=== PATIENT | female | born 1970 | race Caucasian/White ===

== ENCOUNTER 2019-12-21 13:27 | Outpatient (REF) | payer OTHER, SELFPAY ==
[2019-12-27 18:17] LABS: HPV mRNA E6/E7 rflx Not Detected (Not Detected)
== END 2019-12-21 13:28 | disposition home or self-care (01) ==
LOC: HO.LAB 13:27
PROVIDERS: PCP Pediatrics; Visit Provider Obstetrics & Gynecology
DX: Z01.419 Encounter for gynecological examination (general) (routine) without abnormal findings (principal); N87.0 Mild cervical dysplasia; T83.32XA Displacement of intrauterine contraceptive device, initial encounter
CPT/HCPCS: 87624; 87625; 88141; 88142

== ENCOUNTER 2019-12-23 07:24 | Outpatient (REF) | payer OTHER, SELFPAY ==
--- NOTE | 2019-12-23 | MM_ITS ---
EXAMINATION: MM SCREENING DIGITAL BREAST TOMOSYNTHESIS, BILATERAL CLINICAL INFORMATION: Screening. Asymptomatic. Prior reduction mammoplasty 2012. The lifetime risk of breast cancer based on the Tyrer-Cuzick Model is 8%. COMPARISON: Mammography: 12/17/2018, 12/13/2017 TECHNIQUE: Digital breast tomosynthesis is performed in both the craniocaudal and mediolateral oblique views along with computer-aided detection (CAD). Synthesized 2D images are generated from the tomosynthesis. FINDINGS: The breasts are almost entirely fatty (ACR BI-RADS breast composition Category a). There are background stromal densities, stable from prior studies. Scattered regional calcifications anterior left breast are also similar to prior studies. Neither breast shows interval mass or architectural abnormality or abnormal calcifications. No significant changes from prior studies. MM/MM tomosynthesis screening BI IMPRESSION: No mammographic evidence of malignancy. ASSESSMENT: BI-RADS 2: Benign RECOMMENDATION: Routine annual mammography screening. This patient's information was entered into a reminder system with a target due date for their next mammogram.
== END 2019-12-23 07:25 | disposition home or self-care (01) ==
LOC: HO.MAMMO 07:24
PROVIDERS: PCP Pediatrics; Visit Provider Pediatrics
DX: Z12.31 Encounter for screening mammogram for malignant neoplasm of breast (principal)
CPT/HCPCS: 77063; 77067

== ENCOUNTER 2019-12-27 13:20 | Outpatient (REF) | payer OTHER, SELFPAY ==
--- NOTE | 2019-12-27 13:24 | US_ITS ---
EXAMINATION: ULTRASOUND PELVIS COMPLETE CLINICAL INFORMATION: Displaced IUD. COMPARISON: None TECHNIQUE: Transabdominal and transvaginal ultrasound the pelvis is performed. FINDINGS: The uterus is retroverted, retroflexed measuring 8.2 cm in length, 4.3 cm in AP and 5.0 cm in transverse dimension. Endometrial thickness of 0.4 cm. There are small nabothian cysts seen in the cervix. Right ovary measures 2.6 x 1.2 x 1.2 cm and volume 2.0 cm. Left ovary measures 2.5 x 1.5 x 1.7 cm and volume 3.3 mL. There is a dominant follicle measuring 1.4 x 1.2 x 1.2 cm. No solid lesions seen. There is small amount of free fluid in the pelvis. US/US pelvic complete IMPRESSION: Unremarkable retroverted uterus. IUD is in satisfactory position within the endometrial canal. Dominant follicle left ovary. The right ovary is unremarkable. There is no free fluid in the cul-de-sac.
--- NOTE | 2019-12-27 13:24 | US_ITS ---
EXAMINATION: ULTRASOUND PELVIS COMPLETE CLINICAL INFORMATION: Displaced IUD. COMPARISON: None TECHNIQUE: Transabdominal and transvaginal ultrasound the pelvis is performed. FINDINGS: The uterus is retroverted, retroflexed measuring 8.2 cm in length, 4.3 cm in AP and 5.0 cm in transverse dimension. Endometrial thickness of 0.4 cm. There are small nabothian cysts seen in the cervix. Right ovary measures 2.6 x 1.2 x 1.2 cm and volume 2.0 cm. Left ovary measures 2.5 x 1.5 x 1.7 cm and volume 3.3 mL. There is a dominant follicle measuring 1.4 x 1.2 x 1.2 cm. No solid lesions seen. There is small amount of free fluid in the pelvis. US/US transvaginal IMPRESSION: Unremarkable retroverted uterus. IUD is in satisfactory position within the endometrial canal. Dominant follicle left ovary. The right ovary is unremarkable. There is no free fluid in the cul-de-sac.
== END 2019-12-27 13:21 | disposition home or self-care (01) ==
LOC: HO.US 13:20
PROVIDERS: Visit Provider Obstetrics & Gynecology
DX: T83.32XA Displacement of intrauterine contraceptive device, initial encounter (principal)
CPT/HCPCS: 76830; 76856

== ENCOUNTER → 2020-01-10 15:54 | Outpatient (BNVA) | payer OTHER, SELFPAY | PROVIDERS: Visit Provider Obstetrics & Gynecology | DX: Z76.89 Persons encountering health services in other specified circumstances (principal) ==

== ENCOUNTER → 2020-02-28 13:39 | Outpatient (BNVA) | payer OTHER, SELFPAY | PROVIDERS: PCP Pediatrics; Visit Provider Obstetrics & Gynecology | DX: Z76.89 Persons encountering health services in other specified circumstances (principal) ==

== ENCOUNTER 2020-12-28 08:42 | Outpatient (REF) | payer OTHER, SELFPAY ==
--- NOTE | ~2020-12-28 | MM_ITS ---
EXAMINATION: MM SCREENING DIGITAL BREAST TOMOSYNTHESIS, BILATERAL CLINICAL INFORMATION: Screening. Asymptomatic. The lifetime risk of breast cancer based on the Tyrer-Cuzick Model is 8%. COMPARISON: Mammography: 12/23/2019, 12/17/2018, 12/13/2017 TECHNIQUE: Digital breast tomosynthesis is performed in both the craniocaudal and mediolateral oblique views along with computer-aided detection (CAD). Synthesized 2D images are generated from the tomosynthesis. FINDINGS: There are scattered areas of fibroglandular density (ACR BI-RADS breast composition Category b). There are no significant masses, abnormal calcifications, or other abnormalities. MM/MM tomosynthesis screening BI IMPRESSION: No mammographic evidence of malignancy. ASSESSMENT: BI-RADS 1: Negative RECOMMENDATION: Routine annual mammography screening. This patient's information was entered into a reminder system with a target due date for their next mammogram.
== END 2020-12-28 08:43 | disposition home or self-care (01) ==
LOC: HO.MAMMO 08:42
PROVIDERS: Visit Provider Pediatrics
DX: Z12.31 Encounter for screening mammogram for malignant neoplasm of breast (principal)
CPT/HCPCS: 77063; 77067

== ENCOUNTER 2021-04-15 14:52 | Outpatient (REF) | payer OTHER, SELFPAY ==
[2021-04-18 04:27] LABS: HPV mRNA E6/E7 rflx Not Detected (Not Detected)
== END 2021-04-15 14:53 | disposition home or self-care (01) ==
LOC: HO.LAB 14:52
PROVIDERS: Visit Provider Obstetrics & Gynecology
DX: Z01.419 Encounter for gynecological examination (general) (routine) without abnormal findings (principal); Z11.51 Encounter for screening for human papillomavirus (HPV); N87.0 Mild cervical dysplasia
CPT/HCPCS: 87624; 88142

== ENCOUNTER 2022-01-03 08:57 | Outpatient (REF) | payer OTHER, SELFPAY ==
--- NOTE | ~2022-01-03 | MM_ITS ---
EXAMINATION: MM SCREENING DIGITAL BREAST TOMOSYNTHESIS, BILATERAL CLINICAL INFORMATION: Screening. Asymptomatic. History reduction mammoplasty, 2013. COMPARISON: Mammography: 12/28/2020, 12/23/2019, 12/17/2018 TECHNIQUE: Digital breast tomosynthesis is performed in both the craniocaudal and mediolateral oblique views along with computer-aided detection (CAD). Synthesized 2D images are generated from the tomosynthesis. FINDINGS: There are scattered areas of fibroglandular density (ACR BI-RADS breast composition Category b). There are no significant masses, abnormal calcifications, or other abnormalities. Parenchymal pattern is similar to prior studies. There is no developing density or architectural abnormality. The axilla and skin contours are unremarkable. No significant changes. MM/MM tomosynthesis screening BI IMPRESSION: No mammographic evidence of malignancy. ASSESSMENT: BI-RADS 1: Negative RECOMMENDATION: Routine annual mammography screening. This patient's information was entered into a reminder system with a target due date for their next mammogram.
== END 2022-01-03 08:58 | disposition home or self-care (01) ==
LOC: HO.MAMMO 08:57
PROVIDERS: PCP Internal Medicine; Visit Provider Internal Medicine
DX: Z12.31 Encounter for screening mammogram for malignant neoplasm of breast (principal)
CPT/HCPCS: 77063; 77067

== ENCOUNTER 2022-08-26 07:55 | Outpatient (REF) | payer OTHER, SELFPAY ==
[2022-08-29 05:34] LABS: HPV mRNA E6/E7 rflx Not Detected (Not Detected)
== END 2022-08-26 07:56 | disposition home or self-care (01) ==
LOC: HO.LNP 07:55
PROVIDERS: PCP Internal Medicine; Visit Provider Obstetrics & Gynecology
DX: Z01.419 Encounter for gynecological examination (general) (routine) without abnormal findings (principal); N87.0 Mild cervical dysplasia
CPT/HCPCS: 87624; 88142

== ENCOUNTER 2023-01-09 08:07 | Outpatient (REF) | payer OTHER, SELFPAY | END 2023-01-09 08:08 | disposition home or self-care (01) | LOC: HO.MAMMO 08:07 | PROVIDERS: Visit Provider Internal Medicine | DX: Z12.31 Encounter for screening mammogram for malignant neoplasm of breast (principal) | CPT/HCPCS: 77063; 77067 ==

== ENCOUNTER → 2023-01-09 08:15 | Outpatient (BNV) | payer OTHER, SELFPAY | PROVIDERS: Visit Provider Radiology Diagnostic Radiology | DX: Z12.31 Encounter for screening mammogram for malignant neoplasm of breast (principal) | CPT/HCPCS: 77063; 77067 ==

== ENCOUNTER 2023-08-25 08:37 | Outpatient (AMB) | payer OTHER, SELFPAY ==
[2023-08-25 08:40] VITALS: BP 108/68; BMI 33.0
--- NOTE | 2023-08-25 08:40 | A.OFFVIS_ITS ---
Vital Signs 08/25/23 08:40 Height 5 ft 7 in Weight 211 lb BMI 33.0 BP 108/68 Intake Visit Reasons: annual [employer] Java Developer Required: No Information Interpreted: non-clinical & clinical Top Lift Compressor: Top Lift Compressor Present (Niki PERAZA) Accompanied by: Self / Same As Patient Allergies No Known Allergies Allergy (Verified 08/25/23 08:45) Is last menstrual period known: No (mirena) HPI Comments Details: Presenting for annual exam. No complaints. Last Pap/HPV was negative in 08/2022 Last Mammogram was BI-RADS 1 in 01/14 Lab screening Colonoscopy was done at [facility] according to the patient in 2022, the recommendation was to repeat in 3 years, no records available [facility] Medical History SANTI I (cervical intraepithelial neoplasia I) Surgical History H/O LEEP H/O bilateral breast reduction surgery Family History Mother Cervical cancer Social History Household Members: Children Housing: Apartment Alcohol intake: never Patient Tobacco Use Status: Never used Tobacco Current occupational status: employed 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 Sexual orientation: Straight/Heterosexual Gender identity: Female Female Reproductive History Menstrual control method: progestin IUCD Total pregnancies: 3 Full term: 3 Number of Living Children: 3 Date of last pap smear: 08/27/22 Date of Mammogram: 01/19/23 Review of Systems Const All systems reviewed & are unremarkable except as noted in HPI and below Card Reports as per HPI Resp Reports as per HPI GI Reports as per HPI and Reports no additional complaints Reports as per HPI Physical Exam Vital Signs: BMI result Body Mass Index 33.0 Const General: cooperative, healthy appearing and comfortable Chest Chest palpation & inspection: normal inspection of the chest and normal palpation of entire chest wall Breast/axilla inspection: normal inspection of the breasts and normal inspection of the axillae Breast/axilla palpation: normal palpation of the breasts, normal palpation of the axillae and no axillary lymphadenopathy Resp Effort & Inspection: normal respiratory effort Auscultation: clear to auscultation bilaterally Percussion: percussion normal Cardio Palpation: normal PMI Rate: regular rate Rhythm: regular rhythm Heart sounds: no murmurs and no rubs Peripheral pulses: Peripheral pulses 2+ throughout GI Inspection: Yes normal to inspection Palpation (GI): Soft to palpation, nontender, no guarding, not rigid and No hepatosplenomegaly present Percussion: Yes normal to percussion Auscultation: normal bowel sounds Rectal Exam - Female: deferred General: Yes bladder normal to palpation External Female Exam: No lesion Speculum Exam - Vagina: normal appearance of the vagina, normal palpation, normal vaginal discharge and not erythematous Speculum Exam - Cervix: normal appearance of the cervix, normal palpation and Other cervical findings present (IUD thread in place) Bimanual exam- vagina & uterus: normal bimanual exam, normal palpation, uterine size normal, bladder normal to palpation, consistency normal and normal palpation Bimanual Exam- Adnexa, other: adnexae abnormal (Right adnexa was normal, left adnexal fullness), no masses and no tenderness Assessment & Plan Assessment & Plan (1) Well woman exam: Code(s): Z01.419 - Encounter for gynecological examination (general) (routine) without abnormal findings Category: Medical Plan: Co testing not indicated this Counseled the patient about the recommended dietary allowance of 1200 mg of Calcium & 600 IU of vitamin D. Instructions given the patient to schedule next screening Mammogram in 01/15. The patient was instructed to perform monthly self-breast exams and schedule annual exam in a year. All questions answered and the patient verbalized understanding. (2) Adnexal fullness: Comment: Left-sided Code(s): N94.9 - Unspecified condition associated with female genital organs and menstrual cycle Category: Medical Plan: Discussed with the patient the finding on pelvic exam, left adnexal fullness. Instructions given to patient to schedule ultrasound and follow-up appointment within 2 weeks. Orders: Orders US pelvic and transvaginal Today N94.9 - Unspecified condition associated with female genital organs and menstrual cycle Coding Level of Care Code Est Pt Prev Care 40-64y(81567) Diagnoses Well woman exam Z01.419 Adnexal fullness N94.9
== END 2023-08-25 09:24 | disposition home or self-care (01) ==
PROVIDERS: PCP Internal Medicine; Visit Provider Obstetrics & Gynecology
DX: Z01.419 Encounter for gynecological examination (general) (routine) without abnormal findings (principal); N94.9 Unspecified condition associated with female genital organs and menstrual cycle
CPT/HCPCS: 99396

== ENCOUNTER → 2023-08-25 08:37 | Outpatient (BNVA) | payer OTHER, SELFPAY | PROVIDERS: PCP Internal Medicine; Visit Provider Obstetrics & Gynecology ==

== ENCOUNTER 2023-09-01 15:50 | Outpatient (REF) | payer OTHER, SELFPAY ==
--- NOTE | ~2023-09-01 | US_ITS ---
EXAMINATION: US PELVIS CLINICAL INFORMATION: Adnexal fullness, IUD, no pain. COMPARISON: 12/27/2019 TECHNIQUE: Ultrasound of the pelvis is performed using both transabdominal and transvaginal transducers along with Doppler. Transvaginal imaging is performed due to inadequate visualization transabdominally. FINDINGS: The uterus is retroverted and measures 7.7 x 3.5 x 3.[address] within the endometrial cavity. Visualization of the endometrium is limited due to shadowing from IUD. Left ovary measures 2.1 x 1.0 x 1.2 cm, volume 1.3 mL and is poorly visualized due to bowel gas. Small amount of free fluid in the pelvis and left adnexa. Right ovary not visualized. Limited visualization due to bowel gas. 1.4 x 0.9 x 1.4 cm complex, hypoechoic focus within the cervix may represent a complex cystic/fluid collection versus solid mass. US/US pelvic and transvaginal IMPRESSION: 1. IUD in place within the endometrial cavity. Visualization of the endometrium is limited due to shadowing from IUD. 2. Left ovary poorly visualized due to bowel gas. Small amount of free fluid in the left adnexa and pelvic. 3. Right ovary not visualized. 4. A 1.4 cm complex, hypoechoic focus within the cervix may represent a complex cystic/fluid collection versus solid mass. Correlation with clinical exam and gynecologic consultation recommended.
== END 2023-09-01 15:51 | disposition home or self-care (01) ==
LOC: HO.US 15:50
PROVIDERS: PCP Internal Medicine; Visit Provider Obstetrics & Gynecology
DX: N94.9 Unspecified condition associated with female genital organs and menstrual cycle (principal)
CPT/HCPCS: 76830; 76856

== ENCOUNTER 2023-09-27 07:24 | Outpatient (AMB) | payer OTHER, SELFPAY ==
--- NOTE | 2023-09-27 07:28 | MHC.OFFVIS ---
Vital Signs 09/27/23 07:29 Height 5 ft 7 in Weight 209 lb 7.026 oz BMI 32.8 Intake Visit Reasons: ultra sound follow up Conduit Bender Required: No Information Interpreted: non-clinical & clinical Accompanied by: Self / Same As Patient Allergies No Known Allergies Allergy (Verified 08/25/23 08:45) Is last menstrual period known: No (mirena) HPI Comments Details: Presenting for ultrasound follow-up for adnexal fullness that was identified on pelvic exam. Pelvic ultrasound showed the following: The uterus is retroverted and measures 7.7 x 3.5 x 3.[address] within the endometrial cavity. Visualization of the endometrium is limited due to shadowing from IUD. Left ovary measures 2.1 x 1.0 x 1.2 cm, volume 1.3 mL and is poorly visualized due to bowel gas. Small amount of free fluid in the pelvis and left adnexa. Right ovary not visualized. Limited visualization due to bowel gas. 1.4 x 0.9 x 1.4 cm complex, hypoechoic focus within the cervix may represent a complex cystic/fluid collection versus solid mass. 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 Sexual orientation: Straight/Heterosexual Gender identity: Female Review of Systems Const All systems reviewed & are unremarkable except as noted in HPI and below Physical Exam Vital Signs: BMI result Body Mass Index 32.8 General: Yes no CVA tenderness External Female Exam: normal external appearance and normal appearance of the urethra Speculum Exam - Vagina: normal appearance of the vagina, normal palpation, no lesions and no masses Speculum Exam - Cervix: normal appearance of the cervix, normal palpation, no lesions, no masses and nontender Bimanual exam- vagina & uterus: normal bimanual exam, normal palpation, uterine size normal, normal palpation, uterine shape normal, No Cervical tenderness present and non-tender Bimanual Exam- Adnexa, other: normal adnexae Back/Spine/Pelvis Back: no CVA tenderness Assessment & Plan Assessment & Plan (1) Adnexal fullness: Comment: Left-sided Code(s): N94.9 - Unspecified condition associated with female genital organs and menstrual cycle Category: Medical Plan: Discussed with the patient finding on ultrasound showing nonvisualization of of the left ovary and poor visualization of the right, also a solid mass or a complex cyst of the cervix, order pelvic MRI. Instructions given the patient to schedule MRI and a follow-up appointment (2) Abnormality of cervix: Comment: By ultrasound Code(s): N88.9 - Noninflammatory disorder of cervix uteri, unspecified Category: Medical Plan: Discussed with the patient the finding on ultrasound, recommended pelvic MRI. Instructions given the patient to schedule an MRI follow-up appointment Orders: Orders MR pelvis wo/w con Today N88.9 - Noninflammatory disorder of cervix uteri, unspecified, N94.9 - Unspecified condition associated with female genital organs and menstrual cycle Creatinine Today N94.9 - Unspecified condition associated with female genital organs and menstrual cycle Blood Urea Nitrogen Today N94.9 - Unspecified condition associated with female genital organs and menstrual cycle Coding Level of Care Code Est Pt Level 3 (33720) Diagnoses Adnexal fullness N94.9 Abnormality of cervix N88.9
[2023-09-27 07:29] VITALS: BMI 32.8
== END 2023-09-27 08:15 | disposition home or self-care (01) ==
LOC: HO.HWS 07:24
PROVIDERS: PCP Internal Medicine; Visit Provider Obstetrics & Gynecology
DX: N94.9 Unspecified condition associated with female genital organs and menstrual cycle (principal); N88.9 Noninflammatory disorder of cervix uteri, unspecified
CPT/HCPCS: 99213

== ENCOUNTER 2023-09-27 07:24 | Outpatient (REF) | payer OTHER, SELFPAY ==
[2023-09-27 09:40] LABS: Blood Urea Nitrogen 10 mg/dL (9-16); Estimated Glomerular Filt Rate > 60
== END 2023-09-27 07:25 | disposition home or self-care (01) ==
LOC: HO.LAB 07:24
PROVIDERS: PCP Internal Medicine; Visit Provider Obstetrics & Gynecology
DX: N94.9 Unspecified condition associated with female genital organs and menstrual cycle (principal); N88.9 Noninflammatory disorder of cervix uteri, unspecified
CPT/HCPCS: 36415; 82565; 84520

== ENCOUNTER 2023-10-29 15:32 | Outpatient (REF) | payer OTHER, SELFPAY ==
--- NOTE | ~2023-10-29 | MR_ITS ---
EXAMINATION: MRI PELVIS WITH AND WITHOUT CONTRAST CLINICAL INFORMATION: N88.9 - Noninflammatory disorder of cervix uteri, unspecified COMPARISON: Pelvic ultrasound 09/01/2023 TECHNIQUE: Multiple routine MRI sequences through the pelvis were obtained before and after the uneventful administration of 10 mL of Gadavist gadolinium-based IV contrast. FINDINGS: UTERUS: Anteverted and retroflexed uterus has a normal configuration and is normal in size. Endometrium is uniform and measures 0.3 cm in thickness. Intrauterine device in place. Junctional zone is normal in signal and thickness. No focal uterine mass seen. CERVIX: Few nabothian cysts in the cervix one demonstrating some intrinsic T1 bright signal suggesting protein or hemorrhage. No suspicious cervical mass VAGINA: Unremarkable. OVARIES: The right ovary is remarkable for a 3.6 cm unilocular simple-appearing cyst, no follow-up imaging recommended. Left ovary is unremarkable. KIDNEYS AND VISUALIZED UPPER ABDOMEN: Two normally positioned kidneys are seen. Left extrarenal pelvis incidentally noted.. VISUALIZED GI TRACT: Unremarkable. BLADDER: Unremarkable. PELVIC FREE FLUID: No free fluid or ascites. LYMPH NODES: No pathologically enlarged lymph nodes. OSSEOUS STRUCTURES: No acute or suspicious osseous abnormalities. SOFT TISSUES: Unremarkable. MR/MR pelvis wo/w con IMPRESSION: 1. Few nabothian cysts in the cervix, one demonstrating some intrinsic T1 bright signal suggesting protein or hemorrhage. No suspicious cervical mass. 2. A 3.6 cm unilocular simple-appearing right ovarian cyst, no follow-up imaging recommended. Electronically signed by: Evie Ventura MD 11/10/2023 12:20 PM EDT
[2023-10-29] MEDS: gadobutroL 10 ML VIAL IVPUSH (16:18)
== END 2023-10-29 15:33 | disposition home or self-care (01) ==
LOC: HO.MRI 15:32
PROVIDERS: PCP Internal Medicine; Visit Provider Obstetrics & Gynecology
DX: N88.9 Noninflammatory disorder of cervix uteri, unspecified (principal); N94.9 Unspecified condition associated with female genital organs and menstrual cycle
CPT/HCPCS: 72197; A9585

== ENCOUNTER 2023-11-17 12:11 | Outpatient (AMB) | payer OTHER, SELFPAY ==
--- NOTE | 2023-11-17 12:11 | A.OFFVIS_ITS ---
Intake Visit Reasons: mri follow up Allergies No Known Allergies Allergy (Verified 08/25/23 08:45) HPI Comments Details: The patient is scheduled tele health visit to discuss the results of the pelvic MRI which showed the following: IMPRESSION: 1. Few nabothian cysts in the cervix, one demonstrating some intrinsic T1 bright signal suggesting protein or hemorrhage. No suspicious cervical mass. 2. A 3.6 cm unilocular simple-appearing right ovarian cyst, no follow-up imaging recommended. 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 Sexual orientation: Straight/Heterosexual Gender identity: Female Review of Systems Const All systems reviewed & are unremarkable except as noted in HPI and below Reports as per HPI and Reports no additional complaints GI Reports no additional complaints Reports no additional complaints Telehealth Telehealth Telehealth Platform: Telephone Location of provider rendering services: practice address Location of patient: address on file Patient Identification confirmed using: Name, : Yes Telehealth method: video Patient verbally consented to treatment: Yes Patient verbally consented to billing insurance company: Yes Patient informed of any privacy concerns related to visit: Yes Assessment & Plan Assessment & Plan (1) Abnormality of cervix: Comment: By ultrasound Code(s): N88.9 - Noninflammatory disorder of cervix uteri, unspecified Category: Medical Plan: Discussed with the patient the results the MRI. All questions answered, the patient verbalized understanding I spent a total of 20 minutes reviewing the chart, talking to the patient via vi tena and documenting in the medical record. Coding Level of Care Code Tele Est Pt Level 1 (80003) Diagnoses Abnormality of cervix N88.9
== END 2023-11-17 14:24 | disposition home or self-care (01) ==
LOC: HO.HWS 12:11
PROVIDERS: PCP Internal Medicine; Visit Provider Obstetrics & Gynecology
DX: N88.9 Noninflammatory disorder of cervix uteri, unspecified (principal)
CPT/HCPCS: 99211

== ENCOUNTER → 2023-11-17 12:11 | Outpatient (BNVA) | payer OTHER, SELFPAY | PROVIDERS: PCP Internal Medicine; Visit Provider Obstetrics & Gynecology ==

== ENCOUNTER 2024-01-15 07:43 | Outpatient (REF) | payer OTHER, SELFPAY ==
--- NOTE | ~2024-01-15 | MM_ITS ---
EXAMINATION: MM SCREENING DIGITAL BREAST TOMOSYNTHESIS, BILATERAL CLINICAL INFORMATION: Screening. Asymptomatic. COMPARISON: Mammography: Comparison is made with available priors TECHNIQUE: Digital breast mammography with tomosynthesis is performed in both the craniocaudal and mediolateral oblique views along with computer-aided detection (CAD). FINDINGS: There are scattered areas of fibroglandular density (ACR BI-RADS breast composition Category b). Bilateral reduction mammoplasty. Right: There are no significant masses, abnormal calcifications, or other abnormalities. Left: Focal asymmetry upper outer breast posterior depth. Suspicious calcifications or other abnormal findings. MM/MM tomosynthesis screening BI IMPRESSION: Additional imaging is recommended ASSESSMENT: BI-RADS BI-RADS 0 - Incomplete: Needs additional Imaging. RECOMMENDATION: 1. Additional views of the left breast 2. Targeted ultrasound if warranted after review of the additional views. 3. Radiology department staff will contact the patient for additional imaging. Additional Imaging required This examination should not preclude the clinical evaluation of a suspicious palpable abnormality. This patient's information was entered into a reminder system with a target due date for their next mammogram. Electronically signed by: Rachael Murguia DO 01/26/2024 10:01 AM [facility]
== END 2024-01-15 07:44 | disposition home or self-care (01) ==
LOC: HO.MAMMO 07:43
PROVIDERS: PCP Internal Medicine; Visit Provider Internal Medicine
DX: Z12.31 Encounter for screening mammogram for malignant neoplasm of breast (principal)
CPT/HCPCS: 77063; 77067

== ENCOUNTER → 2024-01-15 07:45 | Outpatient (BNV) | payer OTHER, SELFPAY | PROVIDERS: PCP Internal Medicine; Visit Provider Internal Medicine | DX: Z12.31 Encounter for screening mammogram for malignant neoplasm of breast (principal) | CPT/HCPCS: 77063; 77067 ==

== ENCOUNTER → 2024-02-18 09:15 | Outpatient (BNV) | payer OTHER, SELFPAY | PROVIDERS: PCP Internal Medicine; Visit Provider Internal Medicine | DX: N63.12 Unspecified lump in the right breast, upper inner quadrant (principal) | CPT/HCPCS: 76642; 77061; 77065 ==

== ENCOUNTER 2024-02-18 09:26 | Outpatient (REF) | payer OTHER, SELFPAY ==
--- NOTE | ~2024-02-18 | US_ITS ---
EXAMINATION: MM DIAGNOSTIC DIGITAL BREAST TOMOSYNTHESIS, LEFT Limited left breast ultrasound. CLINICAL INFORMATION: Call back from screening for focal asymmetry in the upper outer breast. COMPARISON: Mammography: Comparison is made with available prior examinations. TECHNIQUE: Digital breast tomosynthesis is performed in both the craniocaudal and mediolateral oblique views along with computer-aided detection (CAD). Synthesized 2D images are generated from the tomosynthesis. Limited left breast ultrasound. FINDINGS: There are scattered areas of fibroglandular density (ACR BI-RADS breast composition Category b). Focal asymmetry in the upper outer breast posterior depth persist on additional imaging projections and is increased slightly from priors. No suspicious calcifications or other abnormal findings. Targeted color Doppler left breast ultrasound demonstrates a hypoechoic oval circumscribed solid mass at 2:00 6 cm from nipple measuring 7 x 7 x 4 mm which is a probable correlate for the focal asymmetry on mammography. US/US breast LT limited mamm only IMPRESSION: Hypoechoic oval solid mass at 2:00 6 cm from the nipple. This mass is increased in size on prior mammography therefore ultrasound-guided core needle biopsy is recommended at this time for further confirmation. The findings and recommendations were discussed with the patient the procedure will be scheduled. ASSESSMENT: BI-RADS BI-RADS 4 - Suspicious finding RECOMMENDATION: Biopsy recommended Results were provided to the patient at time of visit by the technologist. This patient's information was entered into a reminder system with a target due date for their next mammogram. Electronically signed by: Rachael Murguia DO 02/18/2024 10:13 AM [facility]
== END 2024-02-18 09:27 | disposition home or self-care (01) ==
LOC: HO.MAMMO 09:26
PROVIDERS: PCP Internal Medicine; Visit Provider Internal Medicine
DX: R92.8 Other abnormal and inconclusive findings on diagnostic imaging of breast (principal)
CPT/HCPCS: 76642; 77061; 77065

== ENCOUNTER 2024-03-15 07:40 | Outpatient (REF) | payer OTHER, SELFPAY ==
--- NOTE | ~2024-03-15 | US_ITS ---
PROCEDURE: ULTRASOUND-GUIDED LEFT BREAST BIOPSY CLINICAL INFORMATION: Left breast mass at 2:00. COMPARISON: Comparison is made with available prior examinations. TECHNIQUE: The details of the procedure, as well as the risks, benefits, and alternatives to the procedure were explained to the patient in detail and all of her questions were answered, after which, written informed consent was obtained. PROCEDURE: Prior to the procedure, sonography revealed left breast mass at 2:00.. A time-out was performed, the lesion intended for biopsy was targeted and the skin of the left breast was then prepped and draped in the usual sterile fashion. Using sonographic guidance, sterile technique, and 1% lidocaine without epinephrine for local anesthesia, a total of 4 cores were obtained through the targeted area with a 14-gauge biopsy device. At the completion of tissue sampling, a single coil metallic clip was deposited at the biopsy site. An appropriate sample was obtained. The postprocedure 2-view direct digital mammogram reveals satisfactory positioning of the biopsy clip. The patient tolerated the procedure well and, after assuring adequate hemostasis, was discharged in good condition after reviewing postbiopsy breast care instructions. Final pathology results are pending. US/US breast ndl core biopsy LT IMPRESSION: 1. Uncomplicated sonographically-guided core biopsy of the left breast. The 2-view direct digital postprocedure mammogram reveals satisfactory positioning of the biopsy clip, however the clip does not correlate with the original focal asymmetry in the upper outer breast on mammography. Recommend follow-up pathology and is benign and six-month follow-up left breast mammogram is recommended for focal asymmetry upper outer breast. 2. Final pathology results are pending. A separate report with final recommendations will be issued once these results are made available. Electronically signed by: Rachael Murguia DO 03/15/2024 11:20 AM [facility]
--- OUTSIDE RECORDS SUMMARY | 2024-03-15 07:43 | XMS_ITS | Encounter Summary ---
Author Organization [facility] Address [address] [place] [address] Care Team Providers Care Risk Analyst Name Role Phone Kathleen Winters MD Primary Care Prov ider Encounter Details Date Type Department Care Team ([facility] st Contact Info) Description 02/18/2024 Telephone Adult Medicine [address] [phone] Kathleen Winters MD [address] [place] [id number] Social History Tobacco Use Types Packs/Day Years Used Date Smoking Tobacco: Former Smokeless Tobacco: Never Alcohol Use Standard Drinks/Week Comments No 0 (1 standard drink = 0.6 oz pur e alcohol) Sex and Gender Information Value Date Recorded Sex Assigned at Not on file Gender Identity Not on file Sexual Orientation Not on file documented as of this encounter Progress Notes * Maria A Bui MA - 03/09/2024 2:05 PM EST Order faxed * Kathleen Winters MD - 02/28/2024 12:53 PM EST Order was placed. Please fax. * Sharon Oviedo MA - 02/18/2024 10:45 AM EST Anna from [facility] calling stating that the patient will need an order Ultrasound guided biopsy of left breast for 2:00oclock mass. Booked on March 15. Please fax signed order over to [facility] ATTN: Anna at FAX [phone]. I did make Anna aware that the provider is out of the office and will be returning next week. She verbalized that she agreed and understood. documented in this encounter Plan of Treatment Not on file documented as of this encounter Visit Diagnoses Diagnosis Abnormal mammogram- Primary Abnormal mammogram, unspecified documented in this encounter Care Teams Risk Analyst Relationship Specialty Start Date End Date Kathleen Winters MD PCP - General Internal Medicine 12/09/21 documented as of this encounter
--- OUTSIDE RECORDS SUMMARY | 2024-03-15 07:43 | XMS_ITS | Clinical Summary ---
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 08/05/2022 Active levonorgestreL (MIRENA) 21 mcg/24hr (up to 8 yrs) 52 mg IUD by Intrauterine route. Active Active Problems Problem Noted Date Diagnosed Date Trace mitral valve regurgitation 02/17/2024 Exercise-induced asthma 12/17/2023 Stage 3a chronic kidney disease 01/06/2020 Elevated BP without diagnosis of hypertension Obesity (BMI 30.0-34.9) 11/30/2017 RBBB 11/30/2017 Soft tissue mass 11/16/2017 Overweight 02/25/2011 Encounters Date Type Department Care Team Description 02/18/2024 Telephone Adult Medicine [address] [phone] Kathleen Winters MD 01/27/2024 Telephone Adult Medicine [address] [phone] Kathleen Winters MD Request For Order(s) ([facility] MAMMOGRAPHY) from Last 3 Months Immunizations Name Administration Dates Next Due Influenza Quadravalent, MDCK , 0.5ml, preservative free (Flucelvax) 6mo and older 12/05/2021 Influenza trivalent, 0.5mL, preservative free (Fluarix; FluLaval; Fluzone) ages 6mo and older (Afluria) 3 years and older 12/07/2020,12/02/2018,11/11/2017,2015,11/22/2014 Pfizer Covid-19 Bivalent, Or iginal + Ba.1 ([employer] Bivalent) 12/05/2021 Tdap Tetanus diptheria acell ular pertussis (Boostrix; Adacel) 7yo and older 11/06/2015,12/22/2010 Surgical History Surgery Date Site/Laterality Comments BREAST REDUCTION 04/07/2011 PROCEDURE: [place] BREAST REDUCTION; COMMENT: bilateral Medical History Medical History Date Comments History of wisdom tooth extraction DX:History of wisdom tooth extraction Ganglion cyst DX:Ganglion cyst ; COMMENT: removed Left 2nd digit Overweight(278.02) 02/25/2011 DX:Overweight (278.02) S/P bilateral breast reduction D X:S/P bilateral breast reduction Trace mitral valve regurgitation DX:Trace mitral valve regurgitation Family History Medical History Relation Name Comments Other: Other Mother cervical ca Relation Name Status Comments Brother 1 Alive DM Brother 2 Alive Brother 3 Alive Father Alive Maternal Grandfather Maternal Grandmother lung ca Mother Alive Paternal Grandfather PR Paternal Grandmother pancrea tic cancer Social History Tobacco Use Types Packs/Day Years Used Date Smoking Tobacco: Former Smokeless Tobacco: Never Alcohol Use Standard Drinks/Week Comments No 0 (1 standard drink = 0.6 oz pur e alcohol) Sex and Gender Information Value Date Recorded Sex Assigned at Not on file Gender Identity Not on file Sexual Orientation Not on file Obstetrics History Last Filed Vital Signs Vital Sign Reading Time Taken Comments Blood Pressure 129/74 12/17/2023 2:25 PM EDT Pulse 73 12/17/2023 2:25 PM EDT Temperature - - Respiratory Rate - - Oxygen Saturation - - Inhaled Oxygen Concentration - - Weight 97.2 kg (214 lb 3.2 oz) 12/17/2023 2:25 P M EDT Height 170.2 cm (5' 7 ) 12/17/2023 2:25 PM EDT Body Mass Index 33.55 12/17/2023 2:25 PM EDT Plan of Treatment Health Maintenance Due Date Last Done Comments Breast Cancer Screening 1970 Pneumococcal Vaccine: Pediatrics (0 to 5 Years) and At-Risk Patients (6 to 64 Years) (1 of 2 - PCV) 05/14/1977 Hepatitis B Vaccines (1 of 3 - 19+ 3-dose series) 05/14/1990 Zoster Vaccines (1 of 2) 05/14/2021 Colorectal Cancer Screening: Stool Based Tests (FOBT/FIT) 01/31/2022 Depression Screening 01/31/2022 Social Influencers of Health Screening 01/31/2022 COVID-19 Vaccine ( season) 2023 12/28/2020, 05/29/2020, 05/08/2020 Influenza Vaccine (#1) 2023 , 12/07/2020, 12/02/2018, Additional history exists DTaP,Tdap,and Td Vaccines (3 - Td or Tdap) 11/05/2025 11/06/2015, 12/22/2010 Cervical Cancer Screening: HPV 03/11/2026 03/11/2021 Cholesterol Screening (Lipid Panel) 12/16/2028 12/17/2023, 12/17/2023 HIV Screening Completed 09/07/2017 Hepatitis C Screening Completed 09/07/2017 Colorectal Cancer Screening: Colonoscopy Discontinued 10/14/2022 HIB Vaccines Aged Out No longer eligi ble based on patient's age to complete this topic HPV Vaccines Aged Out No longer eligi ble based on patient's age to complete this topic Hepatitis A Vaccines Aged Out No long er eligible based on patient's age to complete this topic IPV Vaccines Aged Out No longer eligi ble based on patient's age to complete this topic MMR Vaccines Aged Out No longer eligi ble based on patient's age to complete this topic Meningococcal ACWY Vaccine Aged Out N o longer eligible based on patient's age to complete this topic RSV Immunization Patients Under 20 months Aged Out No longer eligible based on patient's age to complete this topic Varicella Vaccines Aged Out No longer eligible based on patient's age to complete this topic Procedures Procedure Name Priority Date/Time Associated Diagnosis Comments ANNUAL BMP BLOOD TEST Routine 12/17/2023 LIPID PANEL Routine 12/17/2023 COLONOSCOPY Routine 10/14/2022 HPV Routine 03/11/2021 HEPATITIS C SCREENING Routine 09/07/2017 HIV SCREENING Routine 09/07/2017 from Last 3 Months or Most Recently Relevant to Health Maintenance Results * Annual BMP Blood Test (12/17/2023) Pathologist [facility] Annual BMP Blood Test Abstracted Historical Provider MD HIRA ORTIZ E * (ABNORMAL) Lipid panel (12/17/2023) [facility] LDL/HDL Ratio 3 0 - 4 Triglycerides 61 0 - 150 mg/dL Cholesterol 207(A) 0 - 200 mg/dL HDL 69 40 mg/dL LDL Cholesterol 126(A) 0 - 100 mg/dL Blood Venous blood specimen / Unknown Historical Provider LAB BLOOD ORDERAB LES * Colonoscopy (10/14/2022) Pathologist [facility] Colonoscopy No interpretation , Abstracted Anatomical Region Laterality Modality Other Historical Provider MD HIRA ORTIZ E * Cervical Cancer Screening: HPV (03/11/2021) [facility] Cervical Cancer Screening: HPV No interpretation , Abstracted Historical Provider MD HIRA ORTIZ E * HIV Screening (09/07/2017) [facility] HIV Screening Abstracted Historical Provider MD HIRA ORTIZ E * Hepatitis C Screening (09/07/2017) [facility] Hepatitis C Screening Abstracted Historical Provider MD HIRA Jameson from Last 3 Months or Most Recently Relevant to Health Maintenance Care Teams 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
[2024-03-15] MEDS: Sodium Bicarbonate 8.4% 50 MEQ/50 ML VIAL SUBCUT (08:42)
[2024-03-15] MEDS: Lidocaine HCl 1 % 20 ML VIAL 9 ML SUBCUT (08:43)
== END 2024-03-15 07:41 | disposition home or self-care (01) ==
LOC: HO.MAMMO 07:40
PROVIDERS: PCP Internal Medicine; Visit Provider Internal Medicine
DX: R92.8 Other abnormal and inconclusive findings on diagnostic imaging of breast (principal)
CPT/HCPCS: 19083; 77061; 77065; 88305; A4648; C1894; J2003

== ENCOUNTER → 2024-03-15 08:00 | Outpatient (BNV) | payer OTHER, SELFPAY | PROVIDERS: PCP Internal Medicine; Visit Provider Internal Medicine | DX: D24.2 Benign neoplasm of left breast (principal); N64.1 Fat necrosis of breast | CPT/HCPCS: 19083; 77061; 77065 ==

== ENCOUNTER 2024-10-04 14:15 | Outpatient (REF) | payer OTHER, SELFPAY ==
--- NOTE | ~2024-10-04 | MM_ITS ---
EXAMINATION: MM DIAGNOSTIC DIGITAL BREAST TOMOSYNTHESIS, BILATERAL CLINICAL INFORMATION: Left ultrasound-guided core needle biopsy with benign pathology however marker clip did not correlate with the original focal asymmetry. Six-month follow-up was recommended. Patient is due for bilateral mammography today. COMPARISON: Mammography: Comparison is made with relevant prior exams. TECHNIQUE: Digital breast mammography with tomosynthesis is performed in both the craniocaudal and mediolateral oblique views along with computer-aided detection (CAD). FINDINGS: There are scattered areas of fibroglandular density (ACR BI-RADS breast composition Category b). Right: There are no significant masses, abnormal calcifications, or other abnormalities. Left: Focal asymmetry in the upper outer breast posterior depth is slightly less conspicuous and not significantly changed from prior mammogram. Marker clip in the upper outer quadrant from recent benign needle core biopsy. No suspicious calcifications or other abnormal findings. Results are provided to the patient at time of visit by the technologist. MM/MM tomosynthesis diagnostic BI IMPRESSION: Right: Negative. Left: Status post benign needle core biopsy. Focal asymmetry in the upper outer breast not significantly changed from prior mammogram. Recommend 6 month follow-up for further evaluation of stability. ASSESSMENT: BI-RADS BI-RADS 3 - Probably benign finding(s) - 6 month follow-up suggested RECOMMENDATION: 6 Month F/U This patient's information was entered into a reminder system with a target due date for their next mammogram. Electronically signed by: Rachael Murguia DO 10/04/2024 03:03 PM EDT
--- OUTSIDE RECORDS SUMMARY | 2024-10-04 14:33 | XMS_ITS | Continuity of Care Document ---
[facility] Organization [facility] Address [address] [place] [id number] Problems Condition ICD9 code ICD10 code SNOMED code Start Date End Date S tatus Encounter for screening for other metabolic disorders Z13.228 Results No Results Allergies, adverse reactions, alerts No known allergies and adverse reactions Medications No administered medications reported Vital Signs No vital signs reported Social History No smoking Hx information available
--- OUTSIDE RECORDS SUMMARY | 2024-10-04 14:33 | XMS_ITS | Continuity of Care Document ---
Author Organization [facility] Address [address] [place] [id number] Problems Condition ICD9 code ICD10 code SNOMED code Start Date End Date S tatus Encounter for screening for other metabolic disorders Z13.228 Results No Results Allergies, adverse reactions, alerts No known allergies and adverse reactions Medications No administered medications reported Vital Signs No vital signs reported Social History No smoking Hx information available
--- OUTSIDE RECORDS SUMMARY | 2024-10-04 14:33 | XMS_ITS ---
Author Name [facility] Organization Unknown Care Team Organization Name Specialty Phone Email Start Date End Da te [facility] Kathleen Ferrell Primary Care 06/29/2022 10/11/2023 [facility] Termed, PROVIDER Primary Care 12/30/202109/22
== END 2024-10-04 14:16 | disposition home or self-care (01) ==
LOC: HO.MAMMO 14:15
PROVIDERS: PCP Internal Medicine; Visit Provider Internal Medicine
DX: Z12.31 Encounter for screening mammogram for malignant neoplasm of breast (principal); R92.8 Other abnormal and inconclusive findings on diagnostic imaging of breast
CPT/HCPCS: 77062; 77066

== ENCOUNTER → 2024-10-04 14:30 | Outpatient (BNV) | payer OTHER, SELFPAY | PROVIDERS: PCP Internal Medicine; Visit Provider Internal Medicine | DX: R92.8 Other abnormal and inconclusive findings on diagnostic imaging of breast (principal) | CPT/HCPCS: 77062; 77066 ==